=== PATIENT | male | born 2005 | race Caucasian/White ===

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

== ENCOUNTER 2024-04-27 12:01 | Emergency (ER) | payer SELFPAY ==
[2024-04-27 12:08] VITALS: BP 152/72; PULSE 88; RESP 20; TEMP 36.9; O2SAT 100
--- NOTE | 2024-04-27 12:42 | ED.URI ---
HPI - URI/Sore Throat General Chief Complaint: Upper Respiratory Infection Stated Complaint: Sore Thorat/Cough Time Seen by Provider: 04/27/24 12:24 Source: patient, RN notes reviewed and old records reviewed Mode of arrival: ambulatory Limitations: no limitations History of Present Illness HPI Narrative: 18 year old male who presents to [facility] care with complaints of one week duration of cough,dry throat, left chest and left neck pain with no fevers. Patient reports that his throat has been sore, he has not taken any medications for his symptoms. He states that he does have history of enlarged tonsils. Patient reports no known ill exposure. MD elicited complaint: cough and sore throat Onset (ago): week(s) (1 week) Pain scale (0-10): 6 Able to tolerate fluids by mouth: Yes Treatments prior to arrival: none Related Data Allergies Allergy/AdvReac Type Severity Reaction Status Date / Time No Known Allergies Allergy Verified 10/05/21 10:38 Review of Systems Review of Systems: CONSTITUTIONAL: Denies malaise, chills, sweats, or fever. EYES: Denies visual changes, redness, or discharge. ENT: Reports rhinorrhea, congestion, no sinus pain, no otalgia and positive for sore throat. CARDIOVASCULAR: Denies chest pain, palpitations, or edema. RESPIRATORY: Reports cough.? Denies dyspnea. GASTROINTESTINAL: Denies abdominal pain, nausea, vomiting, diarrhea SKIN: Denies rash or itching. MUSCULOSKELETAL: Denies myalgia. NEUROLOGIC: Denies headache. All systems reviewed & are unremarkable except as noted in HPI and below PMFSH Past Medical History Medical History (Updated 04/28/24 @ 00:00 by Kathy Acevedo) Strep pharyngitis Social History Social History (Updated 04/27/24 @ 12:57 by Mary Ford NP) Smoking status: Current every day smoker Tobacco type: e-cigarettes/vaping Alcohol intake: current Alcohol use details: rare Substance use type: does not use Living arrangements: with family Gender identity (if verbalized by the patient): Male Comments At time of signature, agree with nursing past medical, surgical, social and family history. There is no relevant family history pertinent to the presenting complaint Exam Narrative: GENERAL: Well-appearing, well-nourished, and in no acute distress. HEAD: Normocephalic EYES: PERRLA, conjunctivae clear ENT: Nares clear, turbinates edematous and erythematous, clear discharge. Mucous membranes moist. TM pearly vega with dull light reflex bilaterally; no tragal tenderness. Oropharynx erythematous without lesions. Tonsils red enlarged and without exudate, no drooling, no hoarseness, no trismus, uvula midline. NECK: Supple. lymphadenopathy CHEST: Clear to auscultation, breath sounds equal. No wheezing, rhonchi, rales, or stridor. No respiratory distress, speaks in full sentences. dry cough noted SAO2 100% on room air HEART: Regular rate and rhythm. No murmur heard. SKIN: Warm, dry, no rash. NEURO: Alert and oriented x3. PSYCH: Normal mood and affect Course Course Emergency Course: Patient is aware of diagnosis, understands and agrees to treatment plan.? Anticipatory guidance given.? Patient agrees to follow-up as directed and is aware of reasons to seek care at the emergency department. Portions of this record may have been created with voice recognition software Level of Care: Express Care Visit Vital Signs Vital signs: Vital Signs Temperature 36.9 C 04/27/24 12:08 Pulse Rate 88 04/27/24 12:08 Respiratory Rate 20 04/27/24 12:08 Blood Pressure 152/72 H 04/27/24 12:08 Pulse Oximetry 100 04/27/24 12:08 Oxygen Delivery Room Air 04/27/24 12:08 Temperature 36.9 C 04/27/24 12:08 Pulse Rate 88 04/27/24 12:08 Respiratory Rate 20 04/27/24 12:08 Blood Pressure 152/72 H 04/27/24 12:08 Pulse Oximetry 100 04/27/24 12:08 Oxygen Delivery Room Air 04/27/24 12:08 Reviewed MDM - URI/Sore
== END 2024-04-27 13:01 | disposition home or self-care (01) ==
PROVIDERS: Emergency Provider Registered Nurse
DX: J02.0 Streptococcal pharyngitis (principal); F17.290 Nicotine dependence, other tobacco product, uncomplicated
CPT/HCPCS: 87880; 99213; G0463